=== PATIENT | male | born 1945 | race Hispanic/Latino ===

== ENCOUNTER → 2021-02-06 | Day surgery (SDC) | payer MEDICARE ==
[2021-02-05 09:27] LABS: BASOPHILS # (AUTO) 0.1 (0.0-0.1); BASOPHILS % 0.6 % (0.0-1.0); EOSINOPHILS # (AUTO) 0.1 (0.0-0.4); EOSINOPHILS % 0.5 % (0.0-6.0); HEMATOCRIT 40.6 % (38.2-49.6); HEMOGLOBIN 12.7 g/dL (14.0-18.0); LYMPHOCYTES # (AUTO) 3.5 (1.0-3.2); LYMPHOCYTES % 33.2 % (18.0-39.1); MEAN CORPUSCULAR HEMOGLOBIN 29.5 pg (28-32); MEAN CORPUSCULAR HGB CONC 31.3 g/dL (31-35); MEAN CORPUSCULAR VOLUME 94.2 fL (81-99); MONOCYTES # (AUTO) 0.7 (0.2-0.8); MONOCYTES % 6.4 % (4.4-11.3); NEUTROPHILS # (AUTO) 6.1 (2.1-6.9); NEUTROPHILS % 58.9 % (38.7-80.0); PLATELET COUNT 197 x10e3/uL (140-360); RED BLOOD COUNT 4.31 x10e6/uL (4.3-5.7); RED CELL DISTRIBUTION WIDTH 15.9 % (11.7-14.4)
[~2021-02-06] MED LIST: ASPIRIN81 MG PO; CRESTOR10 MG PO; DECARA1250 MCG PO; DICYCLOMINE HCL10 MG PO; ELIQUIS5 MG PO; FLOMAX0.4 MG PO; FUROSEMIDE40 MG PO; LEVOTHYROXINE50 MCG PO; METHOTREXATE2.5 MG PO; METOPROLOL SUCC25 MG PO; PLAVIX75 MG PO; TRAZODONE HCL50 MG PO; ZESTRIL2.5 MG PO
[2021-02-06 14:33] VITALS: BP 138/86
== END | disposition home or self-care (01) ==
LOC: OR 09:32
PROVIDERS: ATTEND Internal Medicine Gastroenterology
DX: K29.70 Gastritis, unspecified, without bleeding (principal); D12.2 Benign neoplasm of ascending colon; K21.00 Gastro-esophageal reflux disease with esophagitis, without bleeding; K44.9 Diaphragmatic hernia without obstruction or gangrene; K62.5 Hemorrhage of anus and rectum; K63.89 Other specified diseases of intestine; K59.00 Constipation, unspecified; K64.8 Other hemorrhoids; I25.810 Atherosclerosis of coronary artery bypass graft(s) without angina pectoris; I10 Essential (primary) hypertension; E03.9 Hypothyroidism, unspecified; M06.9 Rheumatoid arthritis, unspecified; N40.0 Benign prostatic hyperplasia without lower urinary tract symptoms; E78.5 Hyperlipidemia, unspecified; Z01.810 Encounter for preprocedural cardiovascular examination; Z01.812 Encounter for preprocedural laboratory examination; Z20.822 Contact with and (suspected) exposure to COVID-19; Z79.02 Long term (current) use of antithrombotics/antiplatelets; Z95.1 Presence of aortocoronary bypass graft
CPT/HCPCS: 36415; 43239; 45380; 45385; 85025; 88305; 88312; 93005; U0002; 45378